=== PATIENT | female | born 1965 | race Asian ===

== ENCOUNTER 2022-11-22 04:03 | Emergency (ER) | payer MEDICAID ==
[~2022-11-22] VITALS: Ht 157.5 cm; Wt 63.8 kg
[2022-11-22 04:20] VITALS: TEMP 98.5
[2022-11-22 05:30] VITALS: BP 152/94; PULSE 89; RESP 16; O2SAT 100
--- NOTE | 2022-11-22 06:44 | NUR ---
PT LEFT WITHOUT NOTIFYING STAFF AND WITHOUT SIGNING AMA FORM. PER NOC RN NO IV WAS PLACED. PER REGISTRATION THEY SAW PT LEAVE THROUGH ER ENTRANCE WITH A MALE. RN NOTIFIED DR ADORNO AND [employer] ADMINISTRATOR LOGAN.
== END 2022-11-22 06:54 | disposition left against medical advice (07) ==
LOC: ER 04:04
DX: R11.2 Nausea with vomiting, unspecified (principal); Z53.21 Procedure and treatment not carried out due to patient leaving prior to being seen by health care provider
CPT/HCPCS: 99281